=== PATIENT | female | born 1945 | race Caucasian/White ===

== ENCOUNTER 2024-10-13 04:08 | Day surgery (SDC) | payer OTHER ==
[2024-10-12 12:36] VITALS: BMI 28.1
[2024-10-13] MEDS ORDERED: LIDOCAINE HCL/PF 1% SDV 5ML VIAL ONE ×2 (07:22→15:42)
[2024-10-13] MEDS ORDERED: BUPIVACAINE HCL/PF 0.75% 10 ML VIAL ONE (07:22)
[2024-10-13] MEDS ORDERED: BUPIVACAINE HCL/PF 0.25% (2.5MG/ML) 10 ML VIAL ONE (07:43)
[2024-10-13 14:04] VITALS: BP 160/66; PULSE 58; RESP 16; TEMP 97.6
[2024-10-13] MEDS ORDERED: ACETAMINOPHEN 500 MG TABLET (FP) PO PRN (18:51)
== END 2024-10-13 14:15 | disposition home or self-care (01) ==
LOC: JASU-SURG 04:08
PROVIDERS: ATTEND Pain Medicine Pain Medicine
PROC: 3E0T33Z Introduction of Anti-inflammatory into Peripheral Nerves and Plexi, Percutaneous Approach (ICD-10-PCS; 2024-10-13)
PROC: 3E0T3BZ Introduction of Anesthetic Agent into Peripheral Nerves and Plexi, Percutaneous Approach (ICD-10-PCS; principal; 2024-10-13 12:00)
DX: M47.816 Spondylosis without myelopathy or radiculopathy, lumbar region (principal)
CPT/HCPCS: 76000-TC-FY